=== PATIENT | male | born 1960 | race Caucasian/White ===

== ENCOUNTER → 2020-10-01 10:57 | Outpatient (BNVA) | payer OTHER, SELFPAY | PROVIDERS: Family Provider Family Medicine; PCP Family Medicine; Referring Provider Family Medicine; Visit Provider Specialist | DX: M19.011 Primary osteoarthritis, right shoulder (principal); M25.511 Pain in right shoulder | CPT/HCPCS: 73030 ==

== ENCOUNTER 2020-10-14 11:35 | Outpatient (CLI) | payer OTHER, SELFPAY ==
--- NOTE | 2020-10-14 12:11 | CT_ITS ---
WS: [id number] NONCONTRAST CT RIGHT SHOULDER FOLLOWED BY CT SHOULDER ARTHROGRAM INDICATION: Chronic right shoulder pain. Fracture right clavicle. TECHNIQUE: Noncontrast CT right shoulder followed by CT abdomen arthrogram with coronal and sagittal reformatted images. FINDINGS: Chronic healed fracture midshaft right clavicle. Mild degenerative arthritis at the AC join t. Slight hypertrophic spurring. Slight subacromial spurring. Normal sternoclavicular joint. Subacrom ial space is relatively well-preserved. Mild downsloping of the acromion. Tiny amount of calcific ten dinitis at the supraspinatus insertion distally. No high-grade rotator cuff tears. Supraspinatus and infraspinatus appear intact and normal. Normal teres minor. Subscapularis is normal. Biceps tendon in the bicipital groove appears intact although somewhat diminutive. Biceps labral anch or appears intact. Intra-articular biceps tendon appears intact. Distal subscapularis is normal in ap pearance. Chronic appearing irregularity and thinning of the anterior superior glenoid labrum. Diminutive anter ior superior glenoid labrum suspicious for chronic SLAP tear. Posterior inferior glenoid labrum have a more normal appearance. Thinning of the biceps labral anchor which appears intact. Calcified granuloma right lower lobe. Atelectasis right lung base. Visualized right ribs are normal i n appearance. Calcified mediastinal and right hilar lymph nodes.
--- NOTE | 2020-10-14 12:11 | IR_ITS ---
WS: [id number] SHOULDER ARTHROGRAM RIGHT Fluoroscopy time 0.3 minutes Fluoroscopic guided right shoulder arthrogram CLINICAL INFORMATION: S42.009A - Fracture of unspecified part of unspecified clavicle, initial encoun ter for closed fracture COMPARISON: None. PROCEDURE: The procedure including risks, benefits and complications were discussed with the patient, who agreed to proceed. Using sterile technique, the patient was prepped and draped in the usual ster ile fashion. After 1% lidocaine injection using fluoroscopic guidance, a 22-gauge spinal needle was a dvanced into the glenohumeral joint. Approximately 13 ml of a solution containing 10 ml normal saline , 10 ml Omnipaque 300. No immediate complications. FLUOROSCOPY TIME: 0.3 minutes. IR/IR arthrogram shoulderRT [id number] IMPRESSION: Uncomplicated fluoroscopic-guided right shoulder arthrogram. CT to follow.
--- NOTE | 2020-10-14 12:11 | CT_ITS ---
NOTE: Report was unsigned for reason: Order was edited. Original Signature date and time was: 10/14/2020 1511 WS: [id number] NONCONTRAST CT RIGHT SHOULDER FOLLOWED BY CT SHOULDER ARTHROGRAM INDICATION: Chronic right shoulder pain. Fracture right clavicle. TECHNIQUE: Noncontrast CT right shoulder followed by CT abdomen arthrogram with coronal and sagittal reformatted images. FINDINGS: Chronic healed fracture midshaft right clavicle. Mild degenerative arthritis at the AC joint. Slight hypertrophic spurring. Slight subacromial spurring. Normal sternoclavicular joint. Subacromial space is relatively well- preserved. Mild downsloping of the acromion. Tiny amount of calcific tendinitis at the supraspinatus insertion distally. No high-grade rotator cuff tears. Supraspinatus and infraspinatus appear intact and normal. Normal teres minor. Subscapularis is normal. Biceps tendon in the bicipital groove appears intact although somewhat diminutive. Biceps labral anchor appears intact. Intra-articular biceps tendon appears intact. Distal subscapularis is normal in appearance. Chronic appearing irregularity and thinning of the anterior superior glenoid labrum. Diminutive anterior superior glenoid labrum suspicious for chronic SLAP tear. Posterior inferior glenoid labrum have a more normal appearance. Thinning of the biceps labral anchor which appears intact. Calcified granuloma right lower lobe. Atelectasis right lung base. Visualized right ribs are normal in appearance. Calcified mediastinal and right hilar lymph nodes. IMPRESSION: 1. Chronic healed fracture mid shaft right clavicle. 2. Mild degenerative arthritis with hypertrophic spurring at the AC joint. Mild downsloping acromion. 3. Rotator cuff is intact. No rotator cuff tears. Tiny amount of calcific tendinitis supraspinatus insertion. 4. Biceps tendon in the bicipital groove appears intact although somewhat diminutive. Intra-articular biceps tendon is intact. 5. Diminutive and irregular anterosuperior labrum suspicious for chronic SLAP tear. Biceps labral anchor appears intact although somewhat thin and diminutive. 6. Inferior and posterior glenoid labrum has a more normal appearance. [facility]
[2020-10-14] MEDS: iohexol 300 mg/mL 50 mL Btl INTRA-ARTI (13:38)
== END 2020-10-14 11:36 | disposition home or self-care (01) ==
LOC: RADWPI 12:01
PROVIDERS: Visit Provider Specialist
DX: S42.009A Fracture of unspecified part of unspecified clavicle, initial encounter for closed fracture (principal); X58.XXXA Exposure to other specified factors, initial encounter; M19.011 Primary osteoarthritis, right shoulder
CPT/HCPCS: 23350; 73200; 73201; 73202; 77002; Q9967

== ENCOUNTER 2020-12-02 08:05 | Outpatient (CLI) | payer OTHER, SELFPAY ==
--- NOTE | 2020-12-02 08:12 | NM_ITS ---
WS: [id number] NUCLEAR MEDICINE BONE SCAN 3 PHASE Radiopharmaceutical: 26.3 Tc-99m MDP mCi IV Injection site: Left antecubital Postinjection imaging delay: 2 hr CLINICAL INFORMATION: S42.021S - Displaced fracture of shaft of right clavicle, sequela COMPARISON: None. FINDINGS: Chronic healed fracture mid shaft right clavicle. Normal blood flow and blood pool images. Normal delayed skeletal imaging. Mild degenerative arthritis at the AC joints left greater than right . Mild degenerative arthritis at the sternoclavicular joints. Right TKA. Bone lesions: There are no osseous lesions suspicious for metastatic disease. Soft tissue contours: Normal. Kidneys: Normal. Other findings: None. NM/NM bone 3 phase 99888 IMPRESSION: 1. Normal 3 phase bone scan. 2. Normal blood flow and blood pool images. 3. No abnormal activity right clavicle or right AC joint. 4. Chronic healed right clavicular fracture.
== END 2020-12-02 08:06 | disposition home or self-care (01) ==
LOC: RAD 08:08
PROVIDERS: PCP Family Medicine; Visit Provider Specialist
DX: S42.021S Displaced fracture of shaft of right clavicle, sequela (principal); X58.XXXS Exposure to other specified factors, sequela
CPT/HCPCS: 78315; A9561

== ENCOUNTER 2021-08-24 20:00 | Outpatient (CLI) | payer OTHER, SELFPAY | END 2021-08-24 20:01 | disposition home or self-care (01) | LOC: SLEEP 08-25 05:50 | PROVIDERS: PCP Family Medicine; Visit Provider Family Medicine | DX: G47.30 Sleep apnea, unspecified (principal) | CPT/HCPCS: 95810 ==

== ENCOUNTER 2021-10-08 05:58 | Day surgery (SDC) | payer OTHER, SELFPAY ==
[2021-10-06 09:38] VITALS: BMI 29.4
[2021-10-08 06:18] VITALS: BP 132/82; PULSE 61; RESP 18; TEMP 36.1; O2SAT 98
[2021-10-08] MEDS: sodium chloride 0.9% 1,000 ML 30 ML IV (06:22)
--- NOTE | 2021-10-08 06:23 | W.PM.OPSUD ---
Surgery/Procedure H&P Update DATE OF PROCEDURE: October 08, 2021 DATE H&P PERFORMED: 09/28/21 H&P UPDATE INFORMATION: I have reviewed H&P completed within last 30 days, I have examined patient prior to procedure and No changes to prior documentation PREOP DIAGNOSIS: Screening colonoscopy PRIMARY INDICATION FOR PROCEDURE: The same PLANNED PROCEDURE: Operation Date: 10/08/21 07:00 Proposed Procedures p Colonoscopy 80262/z12.11(Not Applicable) - Omer Ortiz MD
--- NOTE | 2021-10-08 06:38 | ANES.PREANE2 ---
Pre-Anesthetic Assessment Height/Weight: Height 1.78 m Weight 92.986 kg Temp Pulse Resp BP Pulse Ox 97 F L 61 18 132/82 98 10/08/21 06:18 10/08/21 06:18 10/08/21 06:18 10/08/21 06:18 10/08/21 06:18 Preop Diagnosis: Screening colonoscopy Operation Date: 10/08/21 07:00 Proposed Procedures p Colonoscopy 28248/z12.11(Not Applicable) - Omer Ortiz MD Familial anesthetic complications: None Was Beta Patience taken within 24 hours: N/A Was Clonidine taken within 24 hours: N/A Last intake: Intake Last Liquid Date 10/07/21 Last Liquid Time 20:00 Last Solid Date 10/06/21 Last Solid Time 18:00 Social Tobacco and No alcohol Exam alert, oriented x 3, clear to auscultation bilaterally and regular rate & rhythm Airway Mallampati: Class III Dentition: other (missing) Pulmonary Chronic Obstructive Pulmonary Disease CV/HEM Hypertension Anesthetic Plan ASA status: 2 Anesthesia: MAC Risk of > 500 ml blood loss (7ml/kg in children): No Medications/Allergies Home Medications Medication Instructions Recorded Confirmed Last Taken Type cholecalciferol (vitamin D3) 10 10 mcg PO DAILY 10/01/20 10/08/21 10/05/21 History mcg (400 unit) capsule lisinopril 20 mg tablet 20 mg PO DAILY 10/01/20 10/08/21 10/05/21 History fluticasone propionate 50 1 spray INTRANASAL DAILY 09/30/21 10/08/21 10/05/21 History mcg/actuation nasal spray,suspension (Flonase Allergy Relief) atorvastatin 20 mg tablet 10 mg PO DAILY 10/08/21 10/08/21 10/05/21 History bupropion HCl 150 mg tablet,12 hr 150 mg PO BID 10/08/21 10/08/21 10/05/21 History sustained-release cetirizine 10 mg tablet (Zyrtec) 10 mg PO DAILY 10/08/21 10/08/21 10/05/21 History hydrochlorothiazide 25 mg tablet 25 mg PO DAILY 10/08/21 10/08/21 10/05/21 History tamsulosin 0.4 mg capsule 0.4 mg PO DAILY 10/08/21 10/08/21 10/05/21 History Allergies Allergy/AdvReac Type Severity Reaction Status Date / Time clindamycin Allergy rash Verified 09/30/21 13:40 Current Medications Generic Name Dose Route Start Last Admin Trade Name Osiel PRN Reason Stop Dose Admin Sodium Chloride 1,000 mls @ 30 mls/hr 10/08/21 06:00 10/08/21 06:22 Sodium Chloride 0.9% IV 10/09/21 05:59 30 mls/hr .Q24H LAURIE Administration PFSH Anesthesia Medical History Acromioclavicular joint arthritis COPD (chronic obstructive pulmonary disease) 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
[2021-10-08 07:26] VITALS: BP 108/59; PULSE 61; RESP 18; TEMP 36.5; O2SAT 95
[2021-10-08 07:38] VITALS: BP 118/71; PULSE 58; RESP 18; TEMP 36.6; O2SAT 97
--- NOTE | 2021-10-08 13:15 | ANE.PACU2 ---
Inpatient post-anesthesia follow up: Airway intact: Yes Vital signs: Temperature 97.8 F Pulse Rate 58 Respiratory Rate 18 Blood Pressure 118/71 Pulse Oximetry 97 Oxygen Delivery Me thod Room Air Oxygen Flow Rate Fraction of Inspir ed Oxygen Hydration adequate: Yes Nausea and vomiting: No Pain level: 1 Mental status: Baseline
== END 2021-10-08 07:52 | disposition home or self-care (01) ==
PROVIDERS: PCP Family Medicine; Visit Provider Surgery
PROC: 0DJD8ZZ Inspection of Lower Intestinal Tract, Via Natural or Artificial Opening Endoscopic (ICD-10-PCS; CPT 45378; principal; 2021-10-08 07:00)
DX: Z12.11 Encounter for screening for malignant neoplasm of colon (principal); K57.30 Diverticulosis of large intestine without perforation or abscess without bleeding; D12.8 Benign neoplasm of rectum; I10 Essential (primary) hypertension; J43.9 Emphysema, unspecified; E78.00 Pure hypercholesterolemia, unspecified; F17.210 Nicotine dependence, cigarettes, uncomplicated
CPT/HCPCS: 45385; J2704; J7030

== ENCOUNTER → 2021-10-22 14:17 | Outpatient (BNVA) | payer OTHER, SELFPAY | PROVIDERS: PCP Family Medicine; Visit Provider Surgery | DX: Z09 Encounter for follow-up examination after completed treatment for conditions other than malignant neoplasm (principal); K63.5 Polyp of colon; K57.31 Diverticulosis of large intestine without perforation or abscess with bleeding | CPT/HCPCS: 99213 ==

== ENCOUNTER 2022-09-02 20:00 | Outpatient (CLI) | payer OTHER, SELFPAY | END 2022-09-02 20:01 | disposition home or self-care (01) | LOC: SLEEP 09-03 04:02 | PROVIDERS: PCP Family Medicine; Visit Provider Family Medicine | DX: G47.33 Obstructive sleep apnea (adult) (pediatric) (principal) | CPT/HCPCS: 95810 ==

== ENCOUNTER → 2024-10-09 08:46 | Outpatient (BNVA) | payer OTHER, SELFPAY | PROVIDERS: PCP Family Medicine; Referring Provider Family Medicine; Visit Provider Surgery | DX: Z12.11 Encounter for screening for malignant neoplasm of colon (principal) | CPT/HCPCS: 99204 ==

== ENCOUNTER 2024-10-10 08:30 | Outpatient (CLI) | payer OTHER, SELFPAY ==
--- NOTE | 2024-10-10 08:33 | USCV_ITS ---
Eugenio Keith Age: 64 Gender: M : 1960 Exam Date: 10/10/2024 08:55 Ordering Phys: Hafsa Juarez MD Technologist: [facility] [place] [facility] [place] HISTORY: Diameter (cm) AP x Transverse x Length Velocity (cm/s) Waveform Prox Aorta: 1.70 x 1.88 x 39.80 Triphasic Mid Aorta: 1.76 x 1.81 x 54.00 Triphasic Distal Aorta: 1.88 x 2.21 x 79.10 Triphasic Right Iliac Prox: 1.00 x 1.03 x 68.50 Triphasic Left Iliac Prox: 1.16 x 1.11 x 101.70 Triphasic Stent Prox Landing x x Aneurysmal Sac Max x x Lt Lat Sac Dim Rt Lat Sac Dim Stent Dist Landing x x Right Iliac Stent x x Left Iliac Stent x x Right Renal Art Left Renal Art FINDINGS: CONCLUSIONS No evidence of AAA Normal iliac arteries Mild atheromatous plaque Kobi Tiwari MD (Electronically Signed) Final Date: 10 October 2024 09:33 S
== END 2024-10-10 08:31 | disposition home or self-care (01) ==
LOC: RAD 08:31
PROVIDERS: PCP Family Medicine; Visit Provider Family Medicine
DX: Z01.89 Encounter for other specified special examinations (principal); I70.0 Atherosclerosis of aorta
CPT/HCPCS: 76706

== ENCOUNTER 2024-10-18 08:36 | Day surgery (SDC) | payer OTHER, SELFPAY ==
[2024-10-18 08:50] VITALS: BP 132/86; PULSE 70; RESP 16; TEMP 36.1; O2SAT 96
--- NOTE | 2024-10-18 08:51 | W.PM.OPSUD ---
Surgery/Procedure H&P Update DATE OF PROCEDURE: October 18, 2024 DATE H&P PERFORMED: 10/09/24 H&P UPDATE INFORMATION: I have reviewed H&P completed within last 30 days, I have examined patient prior to procedure, No changes to prior documentation, Changes to prior documentation as noted here and Risks and benefits of the procedure reviewed PLANNED PROCEDURE: Operation Date: 10/18/24 10:25 Proposed Procedures p Colonoscopy [id number] G0105 Z12.11(Not Applicable) - Alfonzo Sheppard MD
[2024-10-18] MEDS: sodium chloride 0.9% 1,000 ML 15 ML IV (08:59)
--- NOTE | 2024-10-18 09:29 | ANES.PREANE2 ---
Pre-Anesthetic Assessment Height/Weight: Height 1.78 m Temp Pulse Resp BP Pulse Ox O2 Del Method 97.0 F L 70 16 132/86 96 Room Air 10/18/24 08:50 10/18/24 08:50 10/18/24 08:50 10/18/24 08:50 10/18/24 08:50 10/18/24 08:50 Preop Diagnosis: Screen, personal history of polyps Operation Date: 10/18/24 10:25 Proposed Procedures p Colonoscopy 49535 G0105 Z12.11(Not Applicable) - Alfonzo Sheppard MD Familial anesthetic complications: none Was Beta Patience taken within 24 hours: N/A Was Clonidine taken within 24 hours: N/A Last intake: Intake Last Liquid Date 10/17/24 Last Liquid Time 22:00 Last Solid Date 10/16/24 Last Solid Time 18:00 Social Alcohol and Tobacco 1 pack(s) per day 20 pack years cut back smoking 2P per month Exam alert, oriented x 3, clear to auscultation bilaterally and regular rate & rhythm Airway Mallampati: Class II Pulmonary Sleep Apnea CV/HEM Hypertension None reported Hepatic None reported GI None reported Metabolic Hyperlipidemia [facility] [place], [place]/[facility] Lower Back Pain Neuropsych None reported Anesthetic Plan ASA status: 2 Anesthesia: MAC Risk of > 500 ml blood loss (7ml/kg in children): No Medications/Allergies Home Medications ?Medication ?Instructions ?Recorded ?Confirmed ?Last Taken ?Type cholecalciferol (vitamin D3) 10 10 mcg PO DAILY 10/01/20 10/18/24 10/16/24 History mcg (400 unit) capsule lisinopril 20 mg tablet 20 mg PO DAILY 10/01/20 10/18/24 10/16/24 History fluticasone propionate 50 1 spray intranasal DAILY 09/30/21 10/18/24 10/16/24 History mcg/actuation nasal spray,suspension (Flonase Allergy Relief) atorvastatin 20 mg tablet 10 mg PO DAILY 10/08/21 10/18/24 10/16/24 History bupropion HCl 150 mg tablet,12 hr 150 mg PO BID 10/08/21 10/18/24 10/16/24 History sustained-release cetirizine 10 mg tablet (Zyrtec) 10 mg PO DAILY 10/08/21 10/18/24 10/16/24 History hydrochlorothiazide 25 mg tablet 25 mg PO DAILY 10/08/21 10/18/24 10/16/24 History tamsulosin 0.4 mg capsule 0.4 mg PO DAILY 10/08/21 10/18/24 10/16/24 History pregabalin 75 mg capsule 75 mg PO BID nerve pain 10/09/24 10/18/24 10/16/24 History ropinirole 1 mg tablet 1 mg PO DAILY 10/09/24 10/18/24 10/16/24 History Allergies Allergy/AdvReac Type Severity Reaction Status Date / Time clindamycin Allergy rash Verified 10/18/24 08:46 Current Medications Generic Name Dose Route Start Last Admin Trade Name Freq PRN Reason Stop Dose Admin Sodium Chloride 1,000 mls @ 15 mls/hr 10/18/24 08:45 10/18/24 08:59 Sodium Chloride 0.9% IV 10/19/24 08:44 15 mls/hr .Q24H PRN Administration COLONOSCOPY FLUIDS PFSH Anesthesia Medical History 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
[2024-10-18 10:45] VITALS: BP 98/61; PULSE 75; RESP 18; TEMP 36.2; O2SAT 95
[2024-10-18] MEDS: ipratropium-albuterol 3 mL Neb INHALATION (10:48)
[2024-10-18 10:51] VITALS: PULSE 78; RESP 16; O2SAT 94
--- NOTE | 2024-10-18 10:51 | PM.PACU ---
PACU note Narrative: Patient had bronchospasm under anesthesia, desaturated to 71%, given 100mg propofol, PPV via BVM 15L and albuterol, recovers to 95%, given duned in PACU by RT. Patient awake oriented no changed from baseline VSS. Education provided to ensure preoperative breathing treatments prior to any future anesthetics. Exam: awake and vital signs stable Disposition: discharged
[2024-10-18 10:56] VITALS: PULSE 67
[2024-10-18 11:01] VITALS: BP 123/66; PULSE 76; RESP 18; TEMP 36.2; O2SAT 98
--- NOTE | 2024-10-18 12:53 | ANE.PACU2 ---
Inpatient post-anesthesia follow up: Airway intact: Yes Vital signs: Temperature 97.1 F Pulse Rate 76 Respiratory Rate 18 Blood Pressure 123/66 Pulse Oximetry 98 Oxygen Delivery Me thod Room Air Oxygen Flow Rate 5 Fraction of Inspir ed Oxygen Hydration adequate: Yes Nausea and vomiting: No Pain level: 2 Mental status: Baseline
== END 2024-10-18 11:17 | disposition home or self-care (01) ==
PROVIDERS: PCP Family Medicine; Visit Provider Surgery
PROC: 0DJD8ZZ Inspection of Lower Intestinal Tract, Via Natural or Artificial Opening Endoscopic (ICD-10-PCS; CPT 45378; principal; 2024-10-18 10:25)
DX: Z12.11 Encounter for screening for malignant neoplasm of colon (principal); E78.5 Hyperlipidemia, unspecified; J98.01 Acute bronchospasm; J43.9 Emphysema, unspecified; F17.210 Nicotine dependence, cigarettes, uncomplicated; Z79.899 Other long term (current) drug therapy
CPT/HCPCS: 45378; 94640; J2704; J3535; J7030; J9999

== ENCOUNTER → 2024-11-06 10:08 | Outpatient (BNVA) | payer OTHER, SELFPAY | PROVIDERS: PCP Family Medicine; Visit Provider Surgery | DX: Z09 Encounter for follow-up examination after completed treatment for conditions other than malignant neoplasm (principal) | CPT/HCPCS: 99213 ==